=== PATIENT | female | born 1980 | race Two or more races ===

== ENCOUNTER 2025-02-04 06:38 | Day surgery (SDC) | payer OTHER ==
[2025-02-03 11:06] VITALS: BP 105/68
[~2025-02-04] VITALS: Ht 162.6 cm; Wt 55.3 kg
[~2025-02-04 06:38] MED LIST: ZOLOFT100 MG PO
[2025-02-04] MEDS ORDERED: CLINDAMYCIN PHOSPHATE 150 MG/ML (900mg) ONE (08:21)
[2025-02-04] MEDS ORDERED: GENTAMICIN SULFATE 40 MG/ML VIAL ONE (08:26)
[2025-02-04] MEDS ORDERED: TRANEXAMIC ACID 100MG/1ML (1000MG) AMPUL IV ONE (08:26)
[2025-02-04] MEDS ORDERED: POVIDONE-IODINE SCRUB 118 ML BOTT TOP ONE (08:27)
[2025-02-04] MEDS ORDERED: CEFAZOLIN SODIUM 1,000 MG VIAL ONE (08:27)
[2025-02-04] MEDS ORDERED: POVIDONE-IODINE 118 ML BOTT TOP ONE ×2 (08:27→09:53)
== END 2025-02-04 15:10 | disposition home or self-care (01) ==
LOC: CIR.AMB 06:38
PROVIDERS: ATTEND Surgery
DX: C50.412 Malignant neoplasm of upper-outer quadrant of left female breast (principal); D48.61 Neoplasm of uncertain behavior of right breast; Z90.13 Acquired absence of bilateral breasts and nipples; Z80.3 Family history of malignant neoplasm of breast; R59.0 Localized enlarged lymph nodes

== ENCOUNTER 2025-05-20 08:00 | Day surgery (SDC) | payer OTHER ==
[2025-05-20] MEDS ORDERED: CLINDAMYCIN PHOSPHATE 150 MG/ML (900mg) ONE (08:58)
[2025-05-20] MEDS ORDERED: POVIDONE-IODINE 118 ML BOTT TOP ONE ×2 (09:09→11:06)
[2025-05-20] MEDS ORDERED: CEFAZOLIN SODIUM 1,000 MG VIAL ONE ×2 (09:09→11:05)
[2025-05-20] MEDS ORDERED: GENTAMICIN SULFATE 40 MG/ML VIAL ONE ×2 (09:09→11:05)
[2025-05-20] MEDS ORDERED: TRANEXAMIC ACID 100MG/1ML (1000MG) AMPUL ONE (11:05)
[2025-05-20] MEDS ORDERED: EPINEPHRINE HCL/PF 1 MG/ML AMPUL ONE (11:05)
[2025-05-20] MEDS ORDERED: ONDANSETRON HCL 2 MG/ML VIAL IV PRN (12:00)
[2025-05-20] MEDS ORDERED: MORPHINE SULFATE 4 MG/ML VIAL IV PRN (12:00)
== END 2025-05-20 13:35 | disposition home or self-care (01) ==
LOC: CIR.AMB 08:00
PROVIDERS: ATTEND Plastic Surgery
DX: N65.1 Disproportion of reconstructed breast (principal); C50.412 Malignant neoplasm of upper-outer quadrant of left female breast; Z90.13 Acquired absence of bilateral breasts and nipples; Z80.3 Family history of malignant neoplasm of breast